=== PATIENT | female | born 1950 | race Caucasian/White ===

== ENCOUNTER → 2017-01-18 | Outpatient (CLI) | payer MEDICARE, BC ==
[~2017-01-18] MED LIST: NOMEDS XX; PERCOCET 5/3251 EACH PO
--- NOTE | 2017-01-18 11:14 | RADIOLOGY REPORT PS360 ---
BONE DENSITOMETRY(HIP:LT SPINE HISTORY: POST MENOPAUSAL ORDERING PHYSICIAN: Marco Antonio Machado MD PATIENT AGE: 66 years COMPARISON: None FINDINGS: The BMD measured at the left femoral neck is 0.819 g/cm squared with a T score of -1.6. This is considered Osteopenic according to the World Health Organization criteria. Fracture risk is Moderate. Treatment is advised. IMPRESSION: Osteopenia. Suggest follow-up exam December 2018
--- NOTE | 2017-01-22 12:19 | RADIOLOGY REPORT PS360 ---
DIG MAMM-SCREEN [facility] W/CAD CAD Screening ORDERING PHYSICIAN : Marco Antonio Machado MD PATIENT AGE: 66 years GENDER: Female COMPARISON: Previous digital mammograms: January 2011, December 2014,. 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 No hormones. No new complaints noncontributory family history. TECHNIQUE: Standard CC and MLO images were obtained. R2 CAD reviewed. FINDINGS: Moderately dense breast bilaterally. This slightly decreases sensitivity of mammography but there are no no dominant mass nor suspicious calcifications. Either breast. RIGHT BREAST: Stable overall architecture mild asymmetry similar to prior studies no focal area of concern. LEFT BREAST: Skin mole markers on the left breast. No suspicious nodule or densities. Stable appearance IMPRESSION: Stable mammogram with no significant new findings. Moderately dense breast slightly decreased sensitivity mammography BI-RADS CATEGORY: 2_Benign RECOMMENDED FOLLOWUP: 12M 12 MONTH FOLLOW-UP (A letter has been sent to the patient regarding results of the study.)
== END ==
LOC: RAD 09:54
DX: Z12.31 Encounter for screening mammogram for malignant neoplasm of breast (principal); Z78.0 Asymptomatic menopausal state
CPT/HCPCS: G0202